=== PATIENT | female | born 1990 | race American Indian/Alaskan Native ===

== ENCOUNTER 2017-07-07 12:23 | Emergency (ER) | payer OTHER ==
[2017-07-07 12:38] VITALS: BP 118/86
[2017-07-07] MEDS ORDERED: NORCO 5/325 PO ONE (14:14)
[2017-07-07] MEDS ORDERED: MOTRIN PO ONE (14:14)
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
== END 2017-07-07 16:57 | disposition home or self-care (01) ==
LOC: ED 12:23
DX: S16.1XXA Strain of muscle, fascia and tendon at neck level, initial encounter (principal); S39.012A Strain of muscle, fascia and tendon of lower back, initial encounter; V49.40XA Driver injured in collision with unspecified motor vehicles in traffic accident, initial encounter; Y93.89 Activity, other specified; Y92.89 Other specified places as the place of occurrence of the external cause; Y99.8 Other external cause status
CPT/HCPCS: 72040; 72100; 99283